=== PATIENT | female | born 1945 | race Caucasian/White ===

== ENCOUNTER 2022-11-02 12:41 | Day surgery (SDC) | payer MEDICARE, SELFPAY ==
[2022-11-02] VITALS (10 sets, daily range): BP systolic 94–121; BP diastolic 38–60; PULSE 89–99; RESP 16–18; TEMP 36.6–37.1; O2SAT 90–97; BMI 18.8
[2022-11-02] MEDS: Lactated Ringers 1,000 ML 15 ML IV (13:18)
[2022-11-02] MEDS: Ipratropium/Albuterol Sulfate 3 ML AMPUL.NEB INHALATION (14:11)
[2022-11-02 14:50] LABS: Bedside Glucose 84 mg/dL (74-106)
--- NOTE | 2022-11-02 14:55 | PCM.HP.BLA ---
History and Physical Date of Admission: 11/02/22 Intake Vital Signs ? 10/24/2308:54 10/26/2306:59 Height 5 ft 5 in 5 ft 5 in Weight: ? 113 lb 2 oz BMI ? 18.8 BP ? 105/65 Blood Pressure Location ? Rt brachial Position ? Sitting Respiration ? 17 Pulse ? 92 Pulse Source ? Monitor Temp ? 97.4 F L Temp Source ? Temporal Pulse Oximetry (%) ? 92 Oxygen Delivery Method ? room air Intake Visit Reasons:?PORT PLACEMENT Chief Complaint: port placement Is patient in pain?: No Allergies No Known Allergies Allergy (Verified 10/26/22 09:28) Medications albuterol sulfate 90 mcg/actuation aerosol inhaler (Ventolin HFA) 2 puff inhalation Q6H PRN 10/10/22 [History Confirmed 10/26/22] aspirin 81 mg tablet,delayed release (Adult Low Dose Aspirin) 81 mg PO DAILY 10/10/22 [History Confirmed 10/26/22] benzonatate 200 mg capsule 200 mg PO BID-TID PRN 10/10/22 [History Confirmed 10/26/22] diltiazem HCl 120 mg capsule,24 hr,extended release 120 mg PO DAILY 10/10/22 [History Confirmed 10/26/22] gabapentin 100 mg capsule 100 mg PO DAILY 10/10/22 [History Confirmed 10/26/22] lisinopril 40 mg tablet 40 mg PO DAILY 10/10/22 [History Confirmed 10/26/22] melatonin 1 mg tablet 1 mg PO HS PRN 10/10/22 [History Confirmed 10/26/22] metformin 500 mg tablet 500 mg PO BID 10/10/22 [History Confirmed 10/26/22] metoclopramide HCl 5 mg tablet 5 mg PO DAILY 10/10/22 [History Confirmed 10/26/22] metoprolol succinate 50 mg tablet,extended release 24 hr 50 mg PO DAILY 10/10/22 [History Confirmed 10/26/22] multivitamin (Daily Multi-Vitamin tablet) 1 tab PO DAILY 10/10/22 [History Confirmed 10/26/22] naloxone 4 mg/actuation nasal spray (Narcan) 4 mg intranasal Q3M PRN 10/10/22 [History Confirmed 10/26/22] omeprazole 20 mg capsule,delayed release 20 mg PO DAILY 10/10/22 [History Confirmed 10/26/22] oxycodone-acetaminophen 5 mg-325 mg tablet 1 tab PO TID PRN 10/10/22 [History Confirmed 10/26/22] propylene glycol 0.6 % eye drops (Systane Complete) 1 drp ophthalmic (eye) DAILY PRN 10/10/22 [History Confirmed 10/26/22] simvastatin 40 mg tablet 40 mg PO DAILY 10/10/22 [History Confirmed 10/26/22] sucralfate 1 gram tablet 1 g PO QAC 10/10/22 [History Confirmed 10/26/22] tiotropium bromide 18 mcg capsule with inhalation device (Spiriva with HandiHaler) 1 cap inhalation DAILY 10/10/22 [History Confirmed 10/26/22] trazodone 50 mg tablet 50 mg PO DAILY 10/10/22 [History Confirmed 10/26/22] triamterene 37.5 mg-hydrochlorothiazide 25 mg capsule 1 cap PO DAILY 10/10/22 [History Confirmed 10/26/22] PFSH Medical History?(Updated 10/26/22 @ 09:42 by Sindhu Brady COMPUTERIZED TABLE CUTTER, COMPUTERIZED TABLE CUTTER-C) Adenoma of left adrenal gland Bursitis of hip, right Coronary artery disease with unstable angina pectoris Encounter for education History of gastroscopy Surgical History? History of bladder surgery History of repair of congenital atrial septal defect (ASD) History of total abdominal hysterectomy Hx of bilateral salpingectomy Hx of cataract surgery Hx of cholecystectomy Hx of colonoscopy Hx of coronary artery bypass graft Hx of eye surgery Hx of hysterectomy Family History? Grandfather Cancer ? GREAT Grandfather stomach cancer Social History? Smoking Status:? Current every day smoker tobacco type: cigarettes HPI HPI HPI: Patient is a 77-year-old female with carcinomatosis here for port placement. ROS General General: Yes weight change and fatigue; No appetite, colon cancer, breast cancer or weakness HEENT HEENT: Yes eye surgery; No difficulty swallowing, eye injury, swollen glands or hoarseness Endo Endocrine: Yes diabetes mellitus; No thyroid disease, thyroid cancer, Hair loss, heat intolerance or cold intolerance Skin Skin: No rash or changing moles Musc Musculoskeletal: No back problems, arthritis, rheumatoid arthritis, gout or joint pain Cardio Cardiovascular: No murmur, pacemaker, heart disease, atrial fibrillation, high blood pressure, heart attack, heart stent, palpitations, shortness of breat with exertion or chest pain Psych Psychiatric: Yes anxiety; No depression or hearing voices Resp Respiratory: Yes shortness of breath, No sleep apnea, Yes cough, Yes COPD, No asthma, No emphysema and No wheezing Gastro Gastrointestinal: No abdominal pain, Yes nausea or vomiting, No diarrhea, No constipation, No blood in stool, No acid reflux, No hemorrhoids, No ulcers, No gallbladder problem and No black,tarry stools Ty Hematologic: No blood thinners, No blood disorders, No bleeding, No anemia and No blood clots Neuro Neurologic: No system reviewed and no additional complaints, except as documented, No as per HPI, No abnormal gait, No abnormal hearing, No abnormal movements, No abnormal speech, No behavioral changes, No burning sensations, No confusion, No convulsions, No disequilibrium, No dizziness, No localized weakness, No frequent falls, No headache(s), No lack of coordination, No loss of vision, No memory loss, Yes numbness, No other visual disturbances, No radicular pain, No restless legs, No sensory deficit, No syncope, Yes tingling, No tremor(s), No weakness and No other Exam Const General: cooperative Orientation: alert and oriented x3 HENMT Head: normal to inspection Neck Neck: normal visual inspection and full ROM Chest Chest palpation & inspection: normal inspection of the chest Resp Effort & Inspection: normal respiratory effort Auscultation: clear to auscultation bilaterally Cardio Rate: regular rate Rhythm: regular rhythm GI Inspection: non-distended Palpation: soft and nontender Skin General: no rashes or lesions noted Neuro General: patient alert and patient oriented x3 Extrem General: full ROM Psych Appearance: grossly normal Mental Status: mental status grossly normal Assessment and Plan Assessment and Plan (1) Encounter for adjustment and management of vascular access device: ?Plan: The patient requires chest port for chemotherapy.? I discussed placement with her in detail.? I discussed the risks including not limited to bleeding, infection, pneumothorax.? Patient understands the risks and is willing to proceed with chest port placement. Marko De La Vega MD Pager: [facility] [address] [place] [address], [address] [place] [address] Office: I have examined the patient and the H&P has been reviewed. There are no clinical changes since date of exam.
[2022-11-02] MEDS: Cefazolin 2 GM in 0.9% Normal Saline 100 ML IV (15:00)
[2022-11-02] MEDS: Bupivacaine Mpf 0.5% 30 ML VIAL (15:12)
[2022-11-02] MEDS: Lidocaine 1% /Epi 1:100 (20ml) 20 ML Vial (15:12)
--- NOTE | 2022-11-02 16:03 | OP.PCM_ITS ---
Report of Operation Date of Procedure: 11/02/22 Pre-Operative Diagnosis: Need for vascular access for chemotherapy Post-Operative Diagnosis: Same Surgery/Procedure Performed:: Ultrasound and fluoroscopy guided right chest port placement utilizing right IJ Description of Procedure: After obtaining informed consent patient was brought back to the operating room MAC anesthesia was induced and the right chest and neck were prepped in normal s terile fashion. Ultrasound was used to evaluate both IJs and the right IJ was selected. Next, using a needle, the right IJ was accessed and a guidewire was passed on into the superior vena cava under fluoroscopy guidance. A small incision was made over the puncture site and the dilator introducer was placed over the guidewire. Next this was capped and the pocket was made for the port. 1% lidocaine with epinephrine was injected in the proposed port site. An incision was made with scalpel. Electrocautery was used to make a pocket under the skin and subcutaneous tissue. Hemostasis was obtained. Next, the catheter was tunneled up to the neck incision site and placed through the introducer. The peel-away introducer was removed and the position of the catheter was confirmed on fluoroscopy. Next, the catheter was trimmed and attached to the port with the locking device. Interrupted 2-0 Vicryl sutures were used to anchor the port to the chest wall and then the port was placed inside the pocket. The pocket was then flushed with saline and the port irrigated with saline. There was good blood return and the port flushed easily. Next, heparin was injected into the port. The skin was closed with subcutaneous interrupted 3-0 Vicryl sutures. A single 3-0 Vicryl sutures placed under the skin at the neck incision site. Steri-Strips were placed as well as op sites. Patient bessy erated procedure well, was taken to PACU in stable condition. Chest x-ray will be obtained. Grafts/Implants Used: 8 Bengali PowerPort Admit VTE Documentation VTE Mechan Device Prophylaxis: SCD's
--- NOTE | 2022-11-02 16:04 | DCINST_ITS ---
Discharge Instructions Procedure Port-A-Cath Diet Discharge Diet: Light diet - advance as tolerated (Pain medication may cause nausea. You should typically eat light foods as you take your pain medication.) Activity Discharge Activity: Return to Normal Activity and May Shower (with your bandage in place in 1-2 days after surgery. DO NOT SHOWER WHEN YOUR PORT IS ACCESSED.) Dressing / Incision Call your doctor if your incision/area has: Continuous Slow Oozing, Sudden Increased Bleeding, Increased Pain/ Swelling, Increased Redness and Foul Smelling Discharge Call your doctor if you observe: Fever of 101 or Higher Remove Dressing in: 2 days Cleanse incision/area with: Soap & Water Follow Up Care Please Follow Up With: Marko De La Vega MD When: as needed [phone] Test Results: Test results from this visit will be discussed in further detail at your follow- up appointment, if applicable. Discharge Plan Admission Attending Provider: Marko De La Vega Primary Care Provider: Duran Milton Instructions Additional Instructions / Restrictions: Ibuprofen and Tylenol for pain, ice as needed. Discharge Orders/Prescriptions Prescriptions: No Action aspirin [Adult Low Dose Aspirin] 81 mg tablet,delayed release (DR/EC) 81 mg PO DAILY benzonatate 200 mg capsule 200 mg PO BID-TID PRN (Reason: Cough) diltiazem HCl 120 mg capsule,extended release 24 hr 120 mg PO DAILY gabapentin 100 mg capsule 100 mg PO DAILY Rx Instructions: at bedtime lisinopril 40 mg tablet 40 mg PO DAILY melatonin 1 mg tablet 1 mg PO HS PRN (Reason: Sleep) metformin 500 mg tablet 500 mg PO BID metoclopramide HCl 5 mg tablet 5 mg PO QHS Rx Instructions: administer 30 minutes before meals metoprolol succinate 50 mg tablet extended release 24 hr 50 mg PO DAILY multivitamin [Daily Multi-Vitamin] Tablet 1 tab PO DAILY naloxone [Narcan] 4 mg/actuation spray,non-aerosol 4 mg intranasal Q3M PRN (Reason: LOC) Rx Instructions: spray 1 dose into ONE nostril; alternate nostrils w each dose until help arrives omeprazole 20 mg capsule,delayed release(DR/EC) 20 mg PO DAILY oxycodone-acetaminophen 5-325 mg tablet 1 tab PO TID PRN (Reason: Pain) simvastatin 40 mg tablet 40 mg PO QHS Rx Instructions: at bedtime Spiriva with HandiHaler 18 mcg capsule, w/inhalation device 1 cap inhalation DAILY Rx Instructions: puncture 1 cap using device; one dose = 2 inhalations sucralfate 1 gram tablet 1 g PO QAC Systane Complete 0.6 % drops 1 drp ophthalmic (eye) DAILY PRN (Reason: Dry Eye(S)) trazodone 50 mg tablet 50 mg PO QHS Rx Instructions: at bedtime triamterene-hydrochlorothiazid 37.5-25 mg capsule 1 cap PO DAILY albuterol sulfate [Ventolin HFA] 90 mcg/actuation HFA aerosol inhaler 2 puff inhalation Q6H PRN (Reason: SOB) lidocaine-prilocaine 2.5-2.5 % cream 1 applic topical ONCE PRN (Reason: port access) 30 Days Qty: 30 2RF ondansetron 8 mg tablet,disintegrating 8 mg PO Q8H PRN (Reason: nausea and vomiting) Qty: 30 2RF Referrals / Follow Up: Duran Milton MD [Primary Care Provider] - Disposition Disposition (needs filled in before D/C Order can be placed): Home, Self Care
--- NOTE | 2022-11-02 16:20 | RAD_ITS ---
STUDY: XR Chest 1 View 11/02/2022 4:26 PM REASON FOR EXAM: Female, 77 years old. CHEST PAIN line placement -- in pacu COMPARISON: None TECHNIQUE: XR Chest 1 View FINDINGS: There is no demonstrated pleural abnormality. There is no pneumothorax. There is a right Port-A-Cath and/or mediport in place. The tip is in the superior vena cava. Normal heart size. Normal mediastinum. Normal cassy. Prominent appearing increased interstitial lung markings. Normal visualized pulmonary arteries. There is atherosclerotic calcification of the aortic arch with tortuosity. There are diffuse degenerative changes of the visualized thoracic spine. There is degenerative osteoarthritis of the bilateral shoulders. There is no demonstrated abnormality of the visualized soft tissue structures of the upper abdomen. RAD/CXR for Line Placement IMPRESSION: There are no acute findings. Electronically Signed: Lucas Pedro MD at 16:41 EST ,
== END 2022-11-02 17:05 | disposition home or self-care (01) ==
LOC: SDC 12:47 → AC 12:47
PROVIDERS: PCP Family Medicine; Referring Provider Surgery; Visit Provider Surgery
PROC: (CPT 36561; principal; 2022-11-02 14:30)
DX: Z45.2 Encounter for adjustment and management of vascular access device (principal); C78.6 Secondary malignant neoplasm of retroperitoneum and peritoneum; C48.2 Malignant neoplasm of peritoneum, unspecified; E11.51 Type 2 diabetes mellitus with diabetic peripheral angiopathy without gangrene; E11.40 Type 2 diabetes mellitus with diabetic neuropathy, unspecified; N18.30 Chronic kidney disease, stage 3 unspecified; F17.210 Nicotine dependence, cigarettes, uncomplicated; I25.10 Atherosclerotic heart disease of native coronary artery without angina pectoris; E78.5 Hyperlipidemia, unspecified; I12.9 Hypertensive chronic kidney disease with stage 1 through stage 4 chronic kidney disease, or unspecified chronic kidney disease
CPT/HCPCS: 36561; 00532; 71045; 77001; 82962; 94640; J7120; C1788; J2405